=== PATIENT | male | born 1965 | race Hispanic/Latino ===

== ENCOUNTER 2018-03-23 07:14 | Day surgery (SDC) | payer BC ==
[2016-06-14 07:38] VITALS: BMI 30.9
[2018-03-23] MEDS ORDERED: Propofol 10 mg/ml Inj (20 ML) ONE (08:34)
[2018-03-23] MEDS ORDERED: Sodium Chloride 0.9% 1,000 ML IV SCH (09:30)
[2018-03-23 09:39] VITALS: O2SAT 99
[2018-03-23 10:07] VITALS: BP 137/86; PULSE 63; RESP 16; TEMP 97.5
== END 2018-03-23 10:45 | disposition home or self-care (01) ==
LOC: ENDO 07:14
PROVIDERS: ATTEND Internal Medicine Gastroenterology
DX: Z12.11 Encounter for screening for malignant neoplasm of colon (principal); D12.5 Benign neoplasm of sigmoid colon; K63.3 Ulcer of intestine; K62.1 Rectal polyp; K64.1 Second degree hemorrhoids
CPT/HCPCS: 45380; 45385; 88305; J2001; J2704; J7030; J7040